=== PATIENT | female | born 1995 | race Caucasian/White ===

== ENCOUNTER 2019-01-31 20:52 | Emergency (ER) | payer SELFPAY ==
[2019-01-31] MEDS ORDERED: LORazepam 0.5 MG Tab PO ONE (22:08)
--- NOTE | 2019-01-31 22:08 | EDM.PDOC ---
ED HPI GENERAL MEDICAL PROBLEM - General Chief Complaint: Abdominal Pain Stated Complaint: ILLNESS Time Seen by Provider: 01/31/19 22:08 Source of Information: Reports: Patient, Family History Limitations: Reports: No Limitations - History of Present Illness INITIAL COMMENTS - FREE TEXT/NARRATIVE: pt has pain in the upper abdoman. He has vomited twice in the last 2 days and the emesis looked like coffee ground. He has pain in his abdoman. The pt wants to be a He and wants to be called by the name Rojelio. Pt is receiving testosterone injections on a weekly basis. He does not use any other meds. Onset: Today, Other (pt had a coffee ground emesis and he had about 7 stools. ) Duration: Other (pt has abdomanal pain which is going on for the past 4 years according to the pt. He has had coffee ground emesis in the past. ) Location: Reports: Abdomen Associated Symptoms: Reports: Nausea/Vomiting, Other ( diarrhea--there was a small amount of red blood in the stool. He is having rectal pain but is not willing for me to examine the rectum. ) Generalized Pain Score (Numeric/FACES): 5 - Related Data Allergies Allergy/AdvReac Type Severity Reaction Status Date / Time aripiprazole [From Abilify] Allergy Other Verified 01/31/19 21:17 ketorolac [From Toradol] Allergy Cannot Verified 01/31/19 21:17 Remember Home Meds: Home Meds Testosterone Cypionate 50 mg IM ASDIRECTED 01/31/19 [History] Past Medical History HEENT History: Reports: Impaired Vision Respiratory History: Reports: Sleep Apnea Gastrointestinal History: Reports: Chronic Constipation, Chronic Diarrhea PACKAGING ASSOCIATE History: Reports: Other (See Below) Other PACKAGING ASSOCIATE History: pt had irregular bleeding, pt has been taking testosterone injections e/o week but can not state when that was started or when last one was because doesn't keep track of it. pt does state he does not have mensis anymore Neurological History: Reports: Concussion Psychiatric History: Reports: Anxiety, Bipolar, Panic Attack, Schizophrenia, Suicide Attempt, Suicidal Ideation Hematologic History: Reports: Anemia Dermatologic History: Reports: Eczema - Infectious Disease History Infectious Disease History: Reports: Chicken Pox, Influenza, Mononucleosis Social & Family History - Tobacco Use Smoking Status *Q: Light Tobacco Smoker Years of Tobacco use: 8 Packs/Tins Daily: 0.1 - Caffeine Use Caffeine Use: Reports: None - Recreational Drug Use Recreational Drug Use: No ED ROS GENERAL - Review of Systems Review Of Systems: See Below Constitutional: Reports: No Symptoms HEENT: Reports: No Symptoms Respiratory: Reports: No Symptoms Cardiovascular: Reports: No Symptoms Endocrine: Reports: No Symptoms GI/Abdominal: Reports: Abdominal Pain, Diarrhea, Decreased Appetite, Nausea : Reports: No Symptoms Musculoskeletal: Reports: No Symptoms Skin: Reports: No Symptoms ED EXAM, GI/ABD - Physical Exam Exam: See Below Text/Narrative:: pt arrived with a history of 7 stools today. he has not had any since arrival. He had 2 emesis both with coffee ground like. material. He has pain more in the epigastric area. Exam Limited By: No Limitations General Appearance: Alert, Anxious, Other (pt becomes very anxious when ask to give a stool. ) Ears: Normal TMs Nose: Normal Inspection Throat/Mouth: Normal Inspection Head: Atraumatic Neck: Normal Inspection Respiratory/Chest: No Respiratory Distress Cardiovascular: Regular Rate, Rhythm GI/Abdominal Exam: Other ( generalized tenderness ) Course - Vital Signs Last Recorded V/S: Last Vital Signs Temp 36.9 C 01/31/19 21:24 Pulse 55 L 01/31/19 21:24 Resp 16 01/31/19 21:24 BP 104/60 01/31/19 21:24 Pulse Ox 99 01/31/19 21:24 - Orders/Labs/Meds Orders: Active Orders 24 hr Category Date Time Status CLOSTRIDIUM DIFFICILE BY PCR [RM] Stat Lab 01/31/19 22:16 Ordered Labs: Laboratory Tests 01/31/19 01/31/19 01/31/19 Range/Units 22:00 22:00 22:56 WBC 10.6 (4.5-11.0) K/uL RBC 3.97 (3.30-5.50) M/uL Hgb 12.0 (12.0-15.0) g/dL Hct 37.5 (36.0-48.0) % MCV 95 (80-98) fL MCH 30 (27-31) pg MCHC 32 (32-36) % Plt Count 496 H (150-400) K/uL Neut % (Auto) 46 (36-66) % Lymph % (Auto) 46 H (24-44) % Major % (Auto) 7 H (2-6) % Eos % (Auto) 1 L (2-4) % Baso % (Auto) 0 (0-1) % Sodium 143 (140-148) mmol/L Potassium 4.5 (3.6-5.2) mmol/L Chloride 107 (100-108) mmol/L Carbon Dioxide 29 (21-32) mmol/L Anion Gap 6.6 (5.0-14.0) mmol/L BUN 17 (7-18) mg/dL Creatinine 1.0 (0.6-1.0) mg/dL Est Cr Clr Drug Dosing 81.91 mL/min Estimated GFR (MDRD) > 60 (>60) Glucose 102 (74-106) mg/dL Calcium 9.1 (8.5-10.1) mg/dL Total Bilirubin 0.2 (0.2-1.0) mg/dL AST 13 L (15-37) U/L ALT 12 (12-78) U/L Alkaline Phosphatase 81 (46-116) U/L C-Reactive Protein (0.0-0.3) mg/dL Total Protein 6.2 L (6.4-8.2) g/dL Albumin 3.3 L (3.4-5.0) g/dL Globulin 2.9 (2.3-3.5) g/dL Albumin/Globulin Ratio 1.1 L (1.2-2.2) Lipase 214 (73-393) U/L Urine Color Yellow Urine Appearance Clear Urine pH 6.5 (4.5-8.0) Ur Specific [place] 1.015 (1.008-1.030) Urine Protein Negative (NEGATIVE) mg/dL Urine Glucose (UA) Normal (NEGATIVE) mg/dL Urine Ketones Negative (NEGATIVE) mg/dL Urine Occult Blood Negative (NEGATIVE) Urine Nitrite Negative (NEGATIVE) Urine Bilirubin Negative (NEGATIVE) Urine Urobilinogen Normal (NORMAL) mg/dL Ur Leukocyte Esterase Negative (NEGATIVE) Urine RBC 0-5 (0-5) Urine WBC 0-5 (0-5) Ur Epithelial Cells Few Amorphous Sediment Moderate Urine Bacteria Few Urine Mucus Not seen 01/31/19 Range/Units 23:07 WBC (4.5-11.0) K/uL RBC (3.30-5.50) M/uL Hgb (12.0-15.0) g/dL Hct (36.0-48.0) % MCV (80-98) fL MCH (27-31) pg MCHC (32-36) % Plt Count (150-400) K/uL Neut % (Auto) (36-66) % Lymph % (Auto) (24-44) % Major % (Auto) (2-6) % Eos % (Auto) (2-4) % Baso % (Auto) (0-1) % Sodium (140-148) mmol/L Potassium (3.6-5.2) mmol/L Chloride (100-108) mmol/L Carbon Dioxide (21-32) mmol/L Anion Gap (5.0-14.0) mmol/L BUN (7-18) mg/dL Creatinine (0.6-1.0) mg/dL Est Cr Clr Drug Dosing mL/min Estimated GFR (MDRD) (>60) Glucose (74-106) mg/dL Calcium (8.5-10.1) mg/dL Total Bilirubin (0.2-1.0) mg/dL AST (15-37) U/L ALT (12-78) U/L Alkaline Phosphatase (46-116) U/L C-Reactive Protein 0.02 (0.0-0.3) mg/dL Total Protein (6.4-8.2) g/dL Albumin (3.4-5.0) g/dL Globulin (2.3-3.5) g/dL Albumin/Globulin Ratio (1.2-2.2) Lipase (73-393) U/L Urine Color Urine Appearance Urine pH (4.5-8.0) Ur Specific [place] (1.008-1.030) Urine Protein (NEGATIVE) mg/dL Urine Glucose (UA) (NEGATIVE) mg/dL Urine Ketones (NEGATIVE) mg/dL Urine Occult Blood (NEGATIVE) Urine Nitrite (NEGATIVE) Urine Bilirubin (NEGATIVE) Urine Urobilinogen (NORMAL) mg/dL Ur Leukocyte Esterase (NEGATIVE) Urine RBC (0-5) Urine WBC (0-5) Ur Epithelial Cells Amorphous Sediment Urine Bacteria Urine Mucus Meds: Medications Discontinued Medications Generic Name Dose Route Start Last Admin Trade Name Freq PRN Reason Stop Dose Admin Famotidine 20 mg 01/31/19 22:11 01/31/19 22:29 Pepcid PO 01/31/19 22:12 20 mg ONETIME ONE Administration Hydromorphone HCl 0.5 mg 01/31/19 23:24 Dilaudid IM 01/31/19 23:25 ONETIME ONE Lorazepam 0.5 mg 01/31/19 22:08 01/31/19 22:29 Ativan PO 01/31/19 22:09 0.5 mg ONETIME ONE Administration - Re-Assessments/Exams Free Text/Narrative Re-Assessment/Exam: 01/31/19 23:30 pt has a normal wbc. His crp is not elevated. His chems look good. His liver enzymes are normal. He states he had diarrhea on a daily basis. He should be evaluated with a gastroscope and a colonoscopy. Pt is going to think about these procedures. Departure - Departure Time of Disposition: 23:24 Disposition: Home, Self-Care 01 Condition: Fair Clinical Impression: Gastrointestinal irritation - Discharge Information Referrals: PCP,None [Primary Care Provider] - Forms: ED Department Discharge Care Plan Goals: prilosec 20mg bid for 1 week then 1 tab daily . If further vomiting coffee ground material pt should be gastroscoped and have a colonoscopy. - My Orders Last 24 Hours: My Active Orders 01/31/19 22:16 CLOSTRIDIUM DIFFICILE BY PCR [] Stat - Assessment/Plan Last 24 Hours: My Active Orders 01/31/19 22:16 CLOSTRIDIUM DIFFICILE BY PCR [] Stat
[2019-01-31] MEDS ORDERED: Famotidine 20 MG Tab PO ONE (22:11)
[2019-01-31] MEDS ORDERED: HYDROmorphone 0.5 MG/0.5 ML Syringe IM ONE (23:24)
== END 2019-01-31 23:59 | disposition home or self-care (01) ==
LOC: JP.ED 20:52
DX: K31.89 Other diseases of stomach and duodenum (principal); F17.210 Nicotine dependence, cigarettes, uncomplicated; F31.9 Bipolar disorder, unspecified; F41.9 Anxiety disorder, unspecified; Z88.6 Allergy status to analgesic agent; Z88.8 Allergy status to other drugs, medicaments and biological substances
CPT/HCPCS: 36415; 80053; 81001; 83690; 85025; 86140; 96372; 99284; A9270; J1170

== ENCOUNTER 2019-06-22 17:51 | Emergency (ER) | payer SELFPAY ==
--- NOTE | 2019-06-22 20:09 | EDM.PDOCBH ---
ED HPI GENERAL MEDICAL PROBLEM - General Chief Complaint: Behavioral/Psych Stated Complaint: EVAL OR PNEUMONIA Time Seen by Provider: 06/22/19 19:38 Source of Information: Reports: Patient, RN Notes Reviewed History Limitations: Reports: No Limitations - History of Present Illness INITIAL COMMENTS - FREE TEXT/NARRATIVE: 24-year-old female presents emergency department today requesting medications, she has a known history of schizophrenia has been off her medications for some time would like to restart them she recently moved here from [place] she is still a resident of [place] states she has been on Seroquel and Ativan in the past and she is not established with provider. However she has call the resource line of which she is planning on meeting a mental health provider in [place] on Sunday. Denies any homicidal or suicidal ideation Generalized Pain Score (Numeric/FACES): 4 - Related Data Allergies Allergy/AdvReac Type Severity Reaction Status Date / Time aripiprazole [From Abilify] Allergy Other Verified 06/22/19 19:36 ketorolac [From Toradol] Allergy Cannot Verified 06/22/19 19:36 Remember Home Meds: Home Meds NK [No Known Home Meds] 06/22/19 [History] Past Medical History HEENT History: Reports: Impaired Vision Respiratory History: Reports: Sleep Apnea Gastrointestinal History: Reports: Chronic Constipation, Chronic Diarrhea BEHAVIORAL SERVICES TECH History: Reports: Other (See Below) Other BEHAVIORAL SERVICES TECH History: pt had irregular bleeding, pt has been taking testosterone injections e/o week but can not state when that was started or when last one was because doesn't keep track of it. pt does state he does not have mensis anymore Neurological History: Reports: Concussion Psychiatric History: Reports: Anxiety, Bipolar, Panic Attack, Schizophrenia, Suicide Attempt, Suicidal Ideation Hematologic History: Reports: Anemia Dermatologic History: Reports: Eczema - Infectious Disease History Infectious Disease History: Reports: Chicken Pox Social & Family History - Tobacco Use Smoking Status *Q: Current Every Day Smoker Years of Tobacco use: 9 Packs/Tins Daily: 0.5 Used Tobacco, but Quit: No Second Hand Smoke Exposure: Yes - Caffeine Use Caffeine Use: Reports: Coffee, Energy Drinks, Soda, Tea - Alcohol Use Days Per Week of Alcohol Use: 2 Number of Drinks Per Day: 2 Total Drinks Per Week: 4 - Recreational Drug Use Recreational Drug Use: Yes Drug Use in Last 12 Months: Yes Recreational Drug Type: Reports: Marijuana/Hashish Recreational Drug Use Frequency: Daily Recreational Drug Last Use: 06/21/19 ED ROS GENERAL - Review of Systems Review Of Systems: See Below Psychiatric: Reports: Agitation, Anxiety. Denies: Homicidal Ideation, Suicidal Ideation ED EXAM, BEHAVIORAL HEALTH - Physical Exam Exam: See Below Text/Narrative:: Orientated to person place and time, appropriately dressed, well groomed, memory to recent and remote events intact, good attention and concentration, speech ispressured rate tone and volume, good fund of knowledge, language is appropriate, Mood and affect are agitated,s, denies suicidal ideation, denies homicidal ideation, no hallucinations visual or auditory, good judgment, poor insight COURSE, BEHAVIORAL HEALTH COMP - Course Vital Signs: Last Vital Signs Temp 97.8 F 06/22/19 19:40 Pulse 85 06/22/19 19:40 Resp 16 06/22/19 19:40 BP 121/61 06/22/19 19:40 Pulse Ox 99 06/22/19 19:40 Departure - Departure Time of Disposition: 20:09 Disposition: Home, Self-Care 01 Condition: Poor Clinical Impression: Schizophrenia Qualifiers: Schizophrenia type: disorganized schizophrenia Qualified Code(s): F20.1 - Disorganized schizophrenia - Discharge Information Referrals: PCP,None [Primary Care Provider] - Additional Instructions: Use Ativan as needed for anxiety symptoms restart her Seroquel tomorrow morning , please follow-up with your mental health care provider tomorrow, - Assessment/Plan Plan: Assessment Schizophrenia poorly controlled Plan Prescription written for Ativan 1 mg by mouth 3 times a day when necessary total #10 also was restart Seroquel 25 mg by mouth twice a day total #60 she will follow up with her mental health care provider tomorrow
== END 2019-06-22 20:17 | disposition home or self-care (01) ==
LOC: JP.ED 17:51
DX: F20.1 Disorganized schizophrenia (principal)
CPT/HCPCS: 99283